=== PATIENT | male | born 1990 | race Caucasian/White ===

== ENCOUNTER 2021-05-08 11:18 | Emergency (ER) | payer BC ==
[2021-05-08] MEDS ORDERED: Sodium Chloride 0.9% 1,000 ML IV ONE (11:21)
[2021-05-08] MEDS ORDERED: Ondansetron 4 MG/2 ML SDV IVPUSH ONE (11:21)
[2021-05-08] MEDS ORDERED: Prochlorperazine 10 MG/2 ML SDV IVPUSH STA (11:48)
[2021-05-08] MEDS ORDERED: Prochlorperazine 10 MG/2 ML SDV ONE (11:48)
[2021-05-08 11:58] LABS: BASE EXCESS VENOUS,POC 4 mmol/L (-2 - 3+); PCO2 VENOUS,POC 34 mmHg (41-51)
[2021-05-08] MEDS ORDERED: Ketorolac 30 MG/ML SDV IVPUSH STA (12:09)
[2021-05-08] MEDS ORDERED: Iopamidol 755 Mg/ML 100 ML Bottle IV ONE (13:03)
== END 2021-05-08 13:28 | disposition home or self-care (01) ==
LOC: FB.ED 11:18
DX: K52.9 Noninfective gastroenteritis and colitis, unspecified (principal); E10.9 Type 1 diabetes mellitus without complications; Z72.0 Tobacco use
CPT/HCPCS: 36415; 71045; 80053; 82150; 83690; 84484; 85025; 96374; 96375; 99284; J0780; J1885; J2405; J7030

== ENCOUNTER 2023-04-19 14:03 | Emergency (ER) | payer BC, OTHER | END 2023-04-19 15:20 | disposition home or self-care (01) | LOC: FB.ED 14:03 | DX: S60.941A Unspecified superficial injury of left index finger, initial encounter (principal); E10.9 Type 1 diabetes mellitus without complications; Z87.891 Personal history of nicotine dependence; W27.4XXA Contact with kitchen utensil, initial encounter | CPT/HCPCS: 12001; 99282 ==

== ENCOUNTER 2023-10-31 10:39 | Emergency (ER) | payer OTHER ==
[2023-10-31] MEDS: Sodium Chloride 0.9% 1,000 ML IV ONE ×2 (11:16→12:35)
[2023-10-31] MEDS: Ondansetron 4 MG/2 ML SDV IVPUSH ONE ×2 (11:23→12:24)
[2023-10-31 11:39] LABS: HEMATOCRIT 44.6 % (38.3-50.1); HEMOGLOBIN 15.5 g/dL (12.9-17.7); MEAN CORPUSCULAR HEMOGLOBIN 30.3 pg (27.0-33.3); MEAN CORPUSCULAR HGB CONC 34.7 g/dL (28.7-35.3); MEAN CORPUSCULAR VOLUME 87.3 fL (80.8-98.7); MEAN PLATELET VOLUME 7.5 fL (6.7-11.0); PLATELET COUNT,PLT 242 x10(3)uL (117-477); RED CELL DISTRIBUTION WIDTH 12.5 % (12.4-15.0); WHITE BLOOD CELL COUNT,WBC 14.9 x10-3/uL (3.2-10.1)
[2023-10-31 11:44] LABS: BLOOD UREA NITROGEN,BUN 22 mg/dL (7-18); BUN/CREATININE RATIO 24.4 (9-20); CALCIUM 9.2 mg/dL (8.6-10.2); CARBON DIOXIDE,CO2 31 mmol/L (21-32); CHLORIDE,CL 100 mmol/L (100-110); CREATININE 0.9 mg/dL (0.70-1.30); ESTIMATED GFR 117 mL/min (>60); GLUCOSE RANDOM 231 mg/dL (80-116); SODIUM,NA 140 mmol/L (135-145)
[2023-10-31 11:45] LABS: LIPASE 18 U/L (16-77)
[2023-10-31 11:47] LABS: HEMOGLOBIN A1C 9.3 % (<5.7)
[2023-10-31 11:49] LABS: C-REACTIVE PROTEIN < 0.50 mg/dL (<0.50)
[2023-10-31 11:50] LABS: A/G RATIO 1.3; ALANINE AMINOTRANSFERASE,ALT 32 U/L (12-36); ALBUMIN 4.6 g/dL (3.5-5.2); ALKALINE PHOSPHATASE 88 IU/L (56-112); ASPARTATE AMNIOTRANSFERASE,AST 26 IU/L (5-25); PROTEIN TOTAL,TP 8.1 g/dL (6.0-8.0)
[2023-10-31 11:53] LABS: LACTIC ACID 1.3 mmol/L (0.4-2.0)
[2023-10-31 12:18] LABS: BAND PERCENT MAN 1 % (0-6); EOSINOPHILS PERCENT MAN 1 % (0-5); LYMPHOCYTES PERCENT MAN 16 % (13-37); MONOCYTES PERCENT MAN 4 % (4-12); SEG NEUTROPHILS PERCENT MAN 78 % (46-82)
[2023-10-31] MEDS: Pantoprazole 40 MG Vial IVPUSH ONE (12:20)
[2023-10-31] MEDS: Ketorolac 15 MG/ML SDV IVPUSH ONE (13:31)
[2023-10-31] MEDS: LORazepam 2 MG/ML SDV IVPUSH ONE ×2 (13:32→21:03)
[2023-10-31] MEDS: Sodium Chloride 0.9% 10 ML Syringe FLUSH PRN (13:35)
[2023-10-31] MEDS: chlorproMAZINE 25 MG Tab PO ONE ×2 (13:39→17:07)
[2023-10-31] MEDS ORDERED: Haloperidol Lactate 2 MG/ML Oral Soln 15 ML Bottle PO ONE (18:38)
== END 2023-10-31 21:10 | disposition home or self-care (01) ==
LOC: FB.ED 10:39
DX: R11.15 Cyclical vomiting syndrome unrelated to migraine (principal); E10.9 Type 1 diabetes mellitus without complications; F17.210 Nicotine dependence, cigarettes, uncomplicated; Z79.4 Long term (current) use of insulin; Z79.899 Other long term (current) drug therapy
CPT/HCPCS: 36415; 74176; 80053; 83036; 83605; 83690; 85025; 86140; 96361; 96374; 96375; 96376; 99284; A9270; J1885; J2060; J2405; J2470; J3490; J7030

== ENCOUNTER 2023-12-19 07:27 | Emergency (ER) | payer OTHER ==
[2023-12-19] MEDS ORDERED: Prochlorperazine 10 MG/2 ML SDV IM ONE (07:50)
[2023-12-19] MEDS: Sodium Chloride 0.9% 1,000 ML IV ONE (07:58)
[2023-12-19] MEDS ORDERED: Prochlorperazine 10 MG in Sodium Chloride 0.9% 50 ML IV ONE (07:59)
[2023-12-19 08:00] LABS: BASOPHILS ABSOLUTE AUTO 0.1 x10-3/uL (0.0-0.3); BASOPHILS PERCENT AUTO 0.4 % (0.3-3.8); EOSINOPHILS ABSOLUTE AUTO 0.5 x10-3/uL (0.0-0.6); EOSINOPHILS PERCENT AUTO 3.4 % (0.1-6.8); HEMATOCRIT 48.8 % (38.3-50.1); HEMOGLOBIN 17.1 g/dL (12.9-17.7); LYMPHOCYTES ABSOLUTE AUTO 2.5 x10-3/uL (0.5-4.5); LYMPHOCYTES PERCENT AUTO 16.9 % (15.8-45.3); MEAN CORPUSCULAR HEMOGLOBIN 30.3 pg (27.0-33.3); MEAN CORPUSCULAR HGB CONC 35.1 g/dL (28.7-35.3); MEAN CORPUSCULAR VOLUME 86.2 fL (80.8-98.7); MEAN PLATELET VOLUME 7.8 fL (6.7-11.0); MONOCYTES ABSOLUTE AUTO 0.6 x10-3/uL (0.0-1.2); MONOCYTES PERCENT AUTO 4.1 % (5.5-15.2); NEUTROPHILS ABSOLUTE AUTO 11.1 x10-3/uL (1.7-6.9); NEUTROPHILS PERCENT AUTO 75.2 % (40.3-71.8); PLATELET COUNT,PLT 254 x10(3)uL (117-477); RED BLOOD CELL COUNT 5.66 x10(6)uL (3.90-5.90); RED CELL DISTRIBUTION WIDTH 12.6 % (12.4-15.0); WHITE BLOOD CELL COUNT,WBC 14.7 x10-3/uL (3.2-10.1)
[2023-12-19 08:01] LABS: BLOOD UREA NITROGEN,BUN 16 mg/dL (7-18); BUN/CREATININE RATIO 17.8 (9-20); CALCIUM 9.6 mg/dL (8.6-10.2); CARBON DIOXIDE,CO2 29 mmol/L (21-32); CHLORIDE,CL 100 mmol/L (100-110); CREATININE 0.9 mg/dL (0.70-1.30); ESTIMATED GFR 117 mL/min (>60); GLUCOSE RANDOM 325 mg/dL (80-116); POTASSIUM,K 3.9 mmol/L (3.5-5.3); SODIUM,NA 139 mmol/L (135-145)
[2023-12-19] MEDS: Prochlorperazine 10 MG/2 ML SDV IVPUSH ONE (08:02)
[2023-12-19] MEDS: Ondansetron 4 MG/2 ML SDV IVPUSH ONE (08:29)
[2023-12-19 08:46] LABS: BLOOD UREA NITROGEN,BUN 17 mg/dL (7-18); BUN/CREATININE RATIO 21.3 (9-20); CALCIUM 9.5 mg/dL (8.6-10.2); CARBON DIOXIDE,CO2 28 mmol/L (21-32); CHLORIDE,CL 99 mmol/L (100-110); CREATININE 0.8 mg/dL (0.70-1.30); ESTIMATED GFR 121 mL/min (>60); GLUCOSE RANDOM 325 mg/dL (80-116); POTASSIUM,K 3.9 mmol/L (3.5-5.3); SODIUM,NA 139 mmol/L (135-145)
[2023-12-19 08:52] LABS: A/G RATIO 1.3; ALANINE AMINOTRANSFERASE,ALT 28 U/L (12-36); ALBUMIN 4.4 g/dL (3.5-5.2); ALKALINE PHOSPHATASE 108 IU/L (56-112); ASPARTATE AMNIOTRANSFERASE,AST 19 IU/L (5-25); BILIRUBIN TOTAL 0.4 mg/dL (0.1-1.3); PROTEIN TOTAL,TP 7.9 g/dL (6.0-8.0)
[2023-12-19] MEDS: Sodium Chloride 0.9% 1,000 ML IV SCH (08:57)
[2023-12-19] MEDS ORDERED: Haloperidol Lactate 5 MG/ML SDV IM ONE (08:58)
[2023-12-19 09:06] LABS: LACTIC ACID 2.4 mmol/L (0.4-2.0)
[2023-12-19] MEDS: Haloperidol Lactate 5 MG/ML SDV IV ONE (09:07)
[2023-12-19 09:16] LABS: BILIRUBIN,URINE NEGATIVE (NEGATIVE); GLUCOSE,URINE >1000 mg/dL (NORMAL); KETONES,URINE NEGATIVE (NEGATIVE); LEUKOCYTE ESTERASE,URINE NEGATIVE (NEGATIVE); NITRITE,URINE NEGATIVE (NEGATIVE); OCCULT BLOOD,URINE MODERATE (NEGATIVE); PROTEIN,URINE 100 mg/dL (NEGATIVE); UROBILINOGEN,URINE NORMAL (NEGATIVE)
[2023-12-19 09:19] LABS: APPEARANCE,URINE CLEAR (CLEAR); COLOR,URINE YELLOW (YELLOW)
[2023-12-19 09:20] LABS: BACTERIA,URINE FEW (NS); HYALINE CASTS,URINE FEW (NS); SQUAMOUS EPITHELIAL CELLS,UR FEW (NS,R,O); WBC,URINE 0-5 (0-5)
[2023-12-19 09:21] LABS: AMPHETAMINES SCREEN, URINE NEGATIVE (NEGATIVE); BARBITURATE SCREEN,URINE NEGATIVE (NEGATIVE); BENZODIAZEPINES SCREEN,URINE NEGATIVE (NEGATIVE); BUPRENORPHINE SCREEN,URINE NEGATIVE (NEGATIVE); METHADONE SCREEN, URINE NEGATIVE (NEGATIVE); METHAMPHETAMINE SCREEN, URINE NEGATIVE (NEGATIVE); OXYCODONE SCREEN,URINE NEGATIVE (NEGATIVE); THC SCREEN,URINE POSITIVE (NEGATIVE)
== END 2023-12-19 11:50 | disposition home or self-care (01) ==
LOC: FB.ED 07:27
DX: A08.4 Viral intestinal infection, unspecified (principal); R10.9 Unspecified abdominal pain; E10.9 Type 1 diabetes mellitus without complications; F17.210 Nicotine dependence, cigarettes, uncomplicated; Z79.899 Other long term (current) drug therapy
CPT/HCPCS: 36415; 80048; 80053; 80307; 81001; 82947; 83605; 85025; 86140; 87040; 96361; 96374; 96375; 99284; J0780; J1630; J2405; J7030

== ENCOUNTER 2024-01-09 06:19 | Emergency (ER) | payer OTHER ==
[2024-01-09] MEDS ORDERED: Insulin Lispro 100 Unit/ML 3 ML KwikPen SUBCUT ONE (06:20)
[2024-01-09] MEDS ORDERED: Sodium Chloride 0.9% 10 ML Syringe FLUSH PRN (06:35)
[2024-01-09] MEDS: Sodium Chloride 0.9% 1,000 ML IV ONE ×4 (06:42→12:10)
[2024-01-09] MEDS: Ondansetron 4 MG/2 ML SDV IVPUSH ONE ×2 (06:43→07:56)
[2024-01-09 06:49] LABS: HEMATOCRIT 46.6 % (38.3-50.1); MEAN CORPUSCULAR HEMOGLOBIN 29.6 pg (27.0-33.3); MEAN CORPUSCULAR HGB CONC 34.3 g/dL (28.7-35.3); MEAN CORPUSCULAR VOLUME 86.3 fL (80.8-98.7); MEAN PLATELET VOLUME 7.7 fL (6.7-11.0); PLATELET COUNT,PLT 224 x10(3)uL (117-477); RED CELL DISTRIBUTION WIDTH 12.1 % (12.4-15.0); WHITE BLOOD CELL COUNT,WBC 17.6 x10-3/uL (3.2-10.1)
[2024-01-09 06:51] LABS: BLOOD UREA NITROGEN,BUN 19 mg/dL (7-18); BUN/CREATININE RATIO 21.1 (9-20); CALCIUM 9.6 mg/dL (8.6-10.2); CARBON DIOXIDE,CO2 28 mmol/L (21-32); CHLORIDE,CL 100 mmol/L (100-110); CREATININE 0.9 mg/dL (0.70-1.30); ESTIMATED GFR 117 mL/min (>60); GLUCOSE RANDOM 391 mg/dL (80-116); SODIUM,NA 137 mmol/L (135-145)
[2024-01-09 06:57] LABS: BASE EXCESS VENOUS,POC 2 mmol/L (-2 - 3+); PCO2 VENOUS,POC 34 mmHg (41-51); PH VENOUS,POC 7.48 pH Units (7.32-7.43)
[2024-01-09 07:02] LABS: A/G RATIO 1.4; ALANINE AMINOTRANSFERASE,ALT 56 U/L (12-36); ALBUMIN 4.3 g/dL (3.5-5.2); ALKALINE PHOSPHATASE 99 IU/L (56-112); ASPARTATE AMNIOTRANSFERASE,AST 24 IU/L (5-25); BILIRUBIN TOTAL 0.4 mg/dL (0.1-1.3); PROTEIN TOTAL,TP 7.4 g/dL (6.0-8.0)
[2024-01-09 07:09] LABS: BAND PERCENT MAN 1 % (0-6); EOSINOPHILS PERCENT MAN 1 % (0-5); LYMPHOCYTES PERCENT MAN 9 % (13-37); MONOCYTES PERCENT MAN 3 % (4-12); SEG NEUTROPHILS PERCENT MAN 86 % (46-82)
[2024-01-09] MEDS: LORazepam 2 MG/ML SDV IVPUSH ONE (07:16)
[2024-01-09] MEDS ORDERED: Glucagon,Human Recombinant 1 MG Vial IM PRN ×2 (07:25→11:53)
[2024-01-09] MEDS ORDERED: 50% Dextrose in Water 50 ML Syringe IVPUSH PRN ×2 (07:25→11:53)
[2024-01-09] MEDS: Pantoprazole 40 MG Vial IVPUSH ONE (07:30)
[2024-01-09] MEDS: Insulin Lispro 100 Unit/ML 3 ML KwikPen SUBCUT ONE (07:50)
[2024-01-09 08:55] LABS: BILIRUBIN,URINE NEGATIVE (NEGATIVE); GLUCOSE,URINE >1000 mg/dL (NORMAL); KETONES,URINE 15 mg/dL (NEGATIVE); LEUKOCYTE ESTERASE,URINE NEGATIVE (NEGATIVE); NITRITE,URINE NEGATIVE (NEGATIVE); OCCULT BLOOD,URINE MODERATE (NEGATIVE); PROTEIN,URINE 30 mg/dL (NEGATIVE); UROBILINOGEN,URINE NORMAL (NEGATIVE)
[2024-01-09 08:58] LABS: APPEARANCE,URINE CLEAR (CLEAR); BACTERIA,URINE FEW (NS); COLOR,URINE YELLOW (YELLOW); SQUAMOUS EPITHELIAL CELLS,UR FEW (NS,R,O); WBC,URINE 0-5 (0-5)
[2024-01-09] MEDS: Metoclopramide 10 MG/2 ML SDV IVPUSH ONE (10:22)
[2024-01-09 11:42] LABS: BLOOD UREA NITROGEN,BUN 18 mg/dL (7-18); BUN/CREATININE RATIO 25.7 (9-20); CALCIUM 8.3 mg/dL (8.6-10.2); CARBON DIOXIDE,CO2 29 mmol/L (21-32); CHLORIDE,CL 104 mmol/L (100-110); CREATININE 0.7 mg/dL (0.70-1.30); EST CRCL DRUG DOSING (CG) 147.15 mL/min; ESTIMATED GFR 126 mL/min (>60); GLUCOSE RANDOM 248 mg/dL (80-116); POTASSIUM,K 4.2 mmol/L (3.5-5.3); SODIUM,NA 140 mmol/L (135-145)
[2024-01-09] MEDS: Insulin Lispro 100 Unit/ML 3 ML KwikPen SUBCUT SCH (11:58)
[2024-01-09 14:39] VITALS: BP 174/105; PULSE 116
== END 2024-01-09 14:39 | disposition home or self-care (01) ==
LOC: FB.ED 06:19
DX: R11.15 Cyclical vomiting syndrome unrelated to migraine (principal); R19.7 Diarrhea, unspecified; E10.9 Type 1 diabetes mellitus without complications; Z79.4 Long term (current) use of insulin; Z79.899 Other long term (current) drug therapy
CPT/HCPCS: 36415; 80048; 80053; 81001; 82947; 83605; 83735; 85025; 86140; 96361; 96374; 96375; 96376; 99284; 99284-25; J1815; J2060; J2405; J2470; J2765; J7030

== ENCOUNTER 2024-01-30 11:48 | Emergency (ER) | payer OTHER ==
[2024-01-30] MEDS ORDERED: Insulin Lispro 100 Unit/ML 3 ML KwikPen SUBCUT ONE (11:49)
[2024-01-30] MEDS: Lactated Ringers 1,000 ML IV ONE (12:20)
[2024-01-30 12:31] LABS: HEMATOCRIT 45.7 % (38.3-50.1); HEMOGLOBIN 15.6 g/dL (12.9-17.7); MEAN CORPUSCULAR HEMOGLOBIN 29.2 pg (27.0-33.3); MEAN CORPUSCULAR HGB CONC 34.2 g/dL (28.7-35.3); MEAN CORPUSCULAR VOLUME 85.3 fL (80.8-98.7); MEAN PLATELET VOLUME 7.7 fL (6.7-11.0); PLATELET COUNT,PLT 235 x10(3)uL (117-477); RED BLOOD CELL COUNT 5.35 x10(6)uL (3.90-5.90); RED CELL DISTRIBUTION WIDTH 12.4 % (12.4-15.0); WHITE BLOOD CELL COUNT,WBC 14.2 x10-3/uL (3.2-10.1)
[2024-01-30] MEDS: HYDROmorphone 2 MG/ML SDV IVPUSH ONE (12:36)
[2024-01-30] MEDS: Ondansetron 4 MG/2 ML SDV IVPUSH ONE (12:36)
[2024-01-30 12:41] LABS: A/G RATIO 1.3; ALANINE AMINOTRANSFERASE,ALT 52 U/L (12-36); ALBUMIN 4.1 g/dL (3.5-5.2); ALKALINE PHOSPHATASE 107 IU/L (56-112); ASPARTATE AMNIOTRANSFERASE,AST 23 IU/L (5-25); BILIRUBIN TOTAL 1.4 mg/dL (0.1-1.3); BLOOD UREA NITROGEN,BUN 21 mg/dL (7-18); BUN/CREATININE RATIO 23.3 (9-20); CALCIUM 9.1 mg/dL (8.6-10.2); CARBON DIOXIDE,CO2 27 mmol/L (21-32); CHLORIDE,CL 93 mmol/L (100-110); CREATININE 0.9 mg/dL (0.70-1.30); ESTIMATED GFR 117 mL/min (>60); GLUCOSE RANDOM 395 mg/dL (80-116); MAGNESIUM 1.4 mg/dL (1.8-2.5); PHOSPHORUS 1.7 mg/dL (2.6-4.6); PROTEIN TOTAL,TP 7.3 g/dL (6.0-8.0); SODIUM,NA 132 mmol/L (135-145)
[2024-01-30 12:42] LABS: EOSINOPHILS PERCENT MAN 1 % (0-5); LYMPHOCYTES PERCENT MAN 12 % (13-37); MONOCYTES PERCENT MAN 6 % (4-12); SEG NEUTROPHILS PERCENT MAN 81 % (46-82)
[2024-01-30] MEDS: Magnesium Sulfate/Water Premix 2 GM in Premix Bag 1 BAG IV ONE (13:08)
[2024-01-30] MEDS: Pantoprazole 40 MG in Sodium Chloride 0.9% 100 ML IV ONE (13:14)
[2024-01-30] MEDS: Pantoprazole 40 MG Vial IVPUSH ONE ×2 (13:16→13:22)
[2024-01-30] MEDS: Potassium Phosphate,Mb-Db/Sodium Phosphate,Mb-Db Packet PO SCH (13:21)
[2024-01-30] MEDS: Lactated Ringers 1,000 ML IV SCH (13:24)
[2024-01-30] MEDS ORDERED: Glucagon,Human Recombinant 1 MG Vial IM PRN (13:50)
[2024-01-30] MEDS ORDERED: 50% Dextrose in Water 50 ML Syringe IVPUSH PRN (13:50)
[2024-01-30 14:15] LABS: CORONAVIRUS COVID-19 NAA NEGATIVE (NEGATIVE); INFLUENZA A NAA NEGATIVE (NEGATIVE); INFLUENZA B NAA NEGATIVE (NEGATIVE); RESPIRATORY SYNCYTIAL VIR NAA NEGATIVE (NEGATIVE)
[2024-01-30] MEDS: Insulin Lispro 100 Unit/ML 3 ML KwikPen SUBCUT ONE (14:58)
[2024-01-30 15:07] LABS: BILIRUBIN,URINE NEGATIVE (NEGATIVE); GLUCOSE,URINE >1000 mg/dL (NORMAL); KETONES,URINE 50 mg/dL (NEGATIVE); LEUKOCYTE ESTERASE,URINE NEGATIVE (NEGATIVE); NITRITE,URINE NEGATIVE (NEGATIVE); OCCULT BLOOD,URINE MODERATE (NEGATIVE); PROTEIN,URINE 30 mg/dL (NEGATIVE); UROBILINOGEN,URINE NORMAL (NEGATIVE)
[2024-01-30 15:14] LABS: APPEARANCE,URINE CLEAR (CLEAR); BACTERIA,URINE FEW (NS); COLOR,URINE YELLOW (YELLOW); SQUAMOUS EPITHELIAL CELLS,UR FEW (NS,R,O); WBC,URINE 0-5 (0-5)
[2024-01-30] MEDS ORDERED: Insulin Lispro 100 Unit/ML 3 ML KwikPen SUBCUT SCH (18:00)
== END 2024-01-30 18:45 | disposition home or self-care (01) ==
LOC: FB.ED 11:48
DX: R11.15 Cyclical vomiting syndrome unrelated to migraine (principal); E10.9 Type 1 diabetes mellitus without complications; Z79.4 Long term (current) use of insulin; Z79.899 Other long term (current) drug therapy
CPT/HCPCS: 0241U; 36415; 80053; 81001; 82947; 83605; 83690; 83735; 84100; 85025; 96361; 96365; 96366; 96375; 99284; A9270; J1171; J1815; J2405; J2470; J3475; J7120

== ENCOUNTER 2024-01-31 05:20 | Emergency (ER) | payer OTHER ==
[2024-01-31] MEDS: Sodium Chloride 0.9% 1,000 ML IV ONE (05:55)
[2024-01-31] MEDS: Ketorolac 30 MG/ML SDV IVPUSH ONE (05:55)
[2024-01-31] MEDS: Ondansetron 4 MG/2 ML SDV IVPUSH ONE (05:57)
[2024-01-31] MEDS: LORazepam 2 MG/ML SDV IVPUSH ONE (06:03)
[2024-01-31 06:07] LABS: BASOPHILS ABSOLUTE AUTO 0.1 x10-3/uL (0.0-0.3); BASOPHILS PERCENT AUTO 0.5 % (0.3-3.8); EOSINOPHILS ABSOLUTE AUTO 0.1 x10-3/uL (0.0-0.6); EOSINOPHILS PERCENT AUTO 1.1 % (0.1-6.8); HEMATOCRIT 44.1 % (38.3-50.1); HEMOGLOBIN 15.5 g/dL (12.9-17.7); LYMPHOCYTES ABSOLUTE AUTO 1.8 x10-3/uL (0.5-4.5); LYMPHOCYTES PERCENT AUTO 15.8 % (15.8-45.3); MEAN CORPUSCULAR HEMOGLOBIN 29.7 pg (27.0-33.3); MEAN CORPUSCULAR HGB CONC 35.2 g/dL (28.7-35.3); MEAN CORPUSCULAR VOLUME 84.4 fL (80.8-98.7); MEAN PLATELET VOLUME 7.6 fL (6.7-11.0); MONOCYTES ABSOLUTE AUTO 0.6 x10-3/uL (0.0-1.2); MONOCYTES PERCENT AUTO 4.8 % (5.5-15.2); NEUTROPHILS ABSOLUTE AUTO 8.9 x10-3/uL (1.7-6.9); NEUTROPHILS PERCENT AUTO 77.8 % (40.3-71.8); PLATELET COUNT,PLT 237 x10(3)uL (117-477); RED BLOOD CELL COUNT 5.22 x10(6)uL (3.90-5.90); WHITE BLOOD CELL COUNT,WBC 11.4 x10-3/uL (3.2-10.1)
[2024-01-31 06:08] LABS: BLOOD UREA NITROGEN,BUN 16 mg/dL (7-18); CALCIUM 8.9 mg/dL (8.6-10.2); CARBON DIOXIDE,CO2 25 mmol/L (21-32); CHLORIDE,CL 95 mmol/L (100-110); CREATININE 0.8 mg/dL (0.70-1.30); ESTIMATED GFR 121 mL/min (>60); GLUCOSE RANDOM 305 mg/dL (80-116); POTASSIUM,K 3.7 mmol/L (3.5-5.3); SODIUM,NA 132 mmol/L (135-145)
[2024-01-31] MEDS: Pantoprazole 40 MG Vial IVPUSH ONE (06:11)
[2024-01-31 06:19] LABS: A/G RATIO 1.3; ALANINE AMINOTRANSFERASE,ALT 55 U/L (12-36); ALBUMIN 3.9 g/dL (3.5-5.2); ALKALINE PHOSPHATASE 104 IU/L (56-112); ASPARTATE AMNIOTRANSFERASE,AST 27 IU/L (5-25); BILIRUBIN TOTAL 1.3 mg/dL (0.1-1.3); PROTEIN TOTAL,TP 6.9 g/dL (6.0-8.0)
[2024-01-31 07:22] LABS: BILIRUBIN,URINE NEGATIVE (NEGATIVE); GLUCOSE,URINE >1000 mg/dL (NORMAL); KETONES,URINE 50 mg/dL (NEGATIVE); LEUKOCYTE ESTERASE,URINE NEGATIVE (NEGATIVE); NITRITE,URINE NEGATIVE (NEGATIVE); OCCULT BLOOD,URINE LARGE (NEGATIVE); PROTEIN,URINE 30 mg/dL (NEGATIVE); UROBILINOGEN,URINE NORMAL (NEGATIVE)
[2024-01-31 07:24] LABS: APPEARANCE,URINE CLEAR (CLEAR); COLOR,URINE YELLOW (YELLOW)
[2024-01-31 07:25] LABS: BACTERIA,URINE FEW (NS); RBC,URINE 20-30 (0-5); SQUAMOUS EPITHELIAL CELLS,UR FEW (NS,R,O); WBC,URINE 0-5 (0-5)
[2024-01-31 07:33] LABS: AMPHETAMINES SCREEN, URINE NEGATIVE (NEGATIVE); BARBITURATE SCREEN,URINE NEGATIVE (NEGATIVE); BENZODIAZEPINES SCREEN,URINE NEGATIVE (NEGATIVE); BUPRENORPHINE SCREEN,URINE NEGATIVE (NEGATIVE); METHADONE SCREEN, URINE NEGATIVE (NEGATIVE); METHAMPHETAMINE SCREEN, URINE NEGATIVE (NEGATIVE); OXYCODONE SCREEN,URINE NEGATIVE (NEGATIVE); THC SCREEN,URINE POSITIVE (NEGATIVE)
== END 2024-01-31 10:14 | disposition home or self-care (01) ==
LOC: FB.ED 05:20
DX: R11.15 Cyclical vomiting syndrome unrelated to migraine (principal); R11.2 Nausea with vomiting, unspecified; F12.188 Cannabis abuse with other cannabis-induced disorder; E10.9 Type 1 diabetes mellitus without complications; F17.210 Nicotine dependence, cigarettes, uncomplicated; Z79.4 Long term (current) use of insulin; Z79.899 Other long term (current) drug therapy
CPT/HCPCS: 80053; 80307; 81001; 85025; 96361; 96374; 96375; 99284; 99284-25; J1885; J2060; J2405; J2470; J7030

== ENCOUNTER 2024-05-22 09:26 | Emergency (ER) | payer OTHER ==
[2024-05-22] MEDS ORDERED: Glucagon,Human Recombinant 1 MG Vial IM PRN (09:50)
[2024-05-22] MEDS ORDERED: 50% Dextrose in Water 50 ML Syringe IVPUSH PRN (09:50)
[2024-05-22 10:00] LABS: HEMATOCRIT 46.5 % (38.3-50.1); HEMOGLOBIN 16.6 g/dL (12.9-17.7); MEAN CORPUSCULAR HEMOGLOBIN 29.9 pg (27.0-33.3); MEAN CORPUSCULAR HGB CONC 35.6 g/dL (28.7-35.3); MEAN CORPUSCULAR VOLUME 84.1 fL (80.8-98.7); MEAN PLATELET VOLUME 7.5 fL (6.7-11.0); PLATELET COUNT,PLT 245 x10(3)uL (117-477); RED BLOOD CELL COUNT 5.54 x10(6)uL (3.90-5.90); RED CELL DISTRIBUTION WIDTH 12.6 % (12.4-15.0); WHITE BLOOD CELL COUNT,WBC 18.1 x10-3/uL (3.2-10.1)
[2024-05-22] MEDS: Sodium Chloride 0.9% 1,000 ML IV ONE (10:06)
[2024-05-22] MEDS: Prochlorperazine 10 MG/2 ML SDV IVPUSH ONE (10:07)
[2024-05-22] MEDS: Insulin Regular, Human 100 Units/ML 10 ML Vial IV ONE (10:07)
[2024-05-22 10:17] LABS: A/G RATIO 1.3; ALANINE AMINOTRANSFERASE,ALT 44 U/L (12-36); ALBUMIN 4.2 g/dL (3.5-5.2); ALKALINE PHOSPHATASE 118 IU/L (56-112); ASPARTATE AMNIOTRANSFERASE,AST 26 IU/L (5-25); BILIRUBIN TOTAL 0.4 mg/dL (0.1-1.3); BLOOD UREA NITROGEN,BUN 19 mg/dL (7-18); CALCIUM 9.9 mg/dL (8.6-10.2); CARBON DIOXIDE,CO2 29 mmol/L (21-32); CHLORIDE,CL 101 mmol/L (100-110); ESTIMATED GFR 103 mL/min (>60); POTASSIUM,K 3.8 mmol/L (3.5-5.3); PROTEIN TOTAL,TP 7.5 g/dL (6.0-8.0); SODIUM,NA 141 mmol/L (135-145)
[2024-05-22 10:19] LABS: GLUCOSE RANDOM 416 mg/dL (80-116)
[2024-05-22 10:24] LABS: EOSINOPHILS PERCENT MAN 1 % (0-5); LYMPHOCYTES PERCENT MAN 13 % (13-37); MONOCYTES PERCENT MAN 2 % (4-12); SEG NEUTROPHILS PERCENT MAN 84 % (46-82)
[2024-05-22] MEDS: Insulin Glargine,Human Rec. Analog 100 Units/ML 3 ML Pen SUBCUT STA (11:08)
== END 2024-05-22 11:51 | disposition home or self-care (01) ==
LOC: FB.ED 09:26
DX: E10.65 Type 1 diabetes mellitus with hyperglycemia (principal); Z79.4 Long term (current) use of insulin; Z79.899 Other long term (current) drug therapy
CPT/HCPCS: 80053; 82947; 83690; 85025; 96361; 96374; 99284; A9270; J0780; J1815